=== PATIENT | male | born 2005 | race American Indian/Alaskan Native ===

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

== ENCOUNTER 2025-02-14 20:59 | Emergency (ER) | payer MEDICAID, SELFPAY ==
[2025-02-14] VITALS (7 sets, daily range): BP systolic 121–149; BP diastolic 64–85; PULSE 85–112; RESP 17–25; TEMP 36.9; O2SAT 96–99; BMI 34.4
--- NOTE | 2025-02-14 21:47 | DI.RAD.S_ITS ---
PROCEDURE: XR CHEST 1V INDICATIONS: chest pain TECHNIQUE: One view of the chest was acquired. COMPARISON: None. FINDINGS AND IMPRESSION: On this single view study, no airspace consolidation or pleural effusion. Normal heart size. Unremarkable osseous structures. Dictated by: Jah Padilla M.D. on 02/14/2025 at 22:46 Approved by: Jah Padilla M.D. on 02/14/2025 at 22:47
--- NOTE | 2025-02-14 21:47 | ED.CHESTPAIN ---
HPI - Chest Pain General Chief Complaint: Chest Pain Stated Complaint: chest pain, N/V Time Seen by Provider: 02/14/25 21:47 Source: patient Mode of arrival: Ambulatory Limitations: no limitations History of Present Illness HPI narrative: Patient is a 19-year-old male without any significant past medical history presenting to the emergency department from home for evaluation of left-sided chest pain, associated with nausea and vomiting. States it started yesterday after he mowed the lawn, he states that pressing on it does make it worse, states that the pain made him nervous and made him nauseous but currently not complaining of any of the symptoms at this time. Denies any other symptoms such as headache visual disturbances shortness of breath fever chills nausea vomiting abdominal pain or any other GI/ symptoms time. Related Data Home Medications ?Medication ?Instructions ?Recorded ?Confirmed acetaminophen 500 mg tablet 0 mg PO Q4HP PRN ##0 10/04/17 (Tylenol Extra Strength) Previous Rx's ?Medication ?Instructions ?Recorded ondansetron 4 mg disintegrating 4 mg sublingual Q6HP PRN ##20 10/04/17 tablet (Zofran ODT) Allergies Allergy/AdvReac Type Severity Reaction Status Date / Time amoxicillin (AMOXICILLIN) Allergy Unknown Unverified 02/14/25 21:09 Review of Systems Review of Systems Narrative: General: Denies fever, chills, weight loss HEENT: Denies headache, eye drainage, eye irritation, head trauma, sore throat, voice change Cardiovascular: Positive left-sided chest pain, denies palpitations, tachycardia Respiratory: Denies any shortness of breath, cough, wheeze, stridor GI/: Denies any abdominal pain, nausea, vomiting, diarrhea, bright red blood per rectum, melanotic stools, urinary frequency, urinary retention, dysuria, hematuria MSK: Denies any joint pain, muscle pains, swelling Skin: Denies any rashes, lesions, discoloration Neuro: Denies any headache, lightheadedness, dizziness, fainting, weakness Psych: Denies SI/HI Patient History Social History Smoking Status: Never smoker Smoking Status: Never smoker Exam Narrative Exam Narrative: General: Cooperative, well-developed, not in acute distress HEENT: Normocephalic, atraumatic, PERRLA, normal sclera, eyelids normal Neck: Active full range of motion, atraumatic Chest: Normal to inspection, negative crepitus, no overlying erythema ecchymosis, reproducible chest pain with palpation to the left chest no overlying erythema ecchymosis gross deformity bilateral upper extremities are neurovascularly intact Respiratory: Normal respiratory effort, not in acute respiratory distress, clear to auscultation bilaterally negative cough, wheeze, tachypnea, rhonchi, rales Cardiology: Regular rate rhythm negative gallop, murmur, rubs GI/: No tenderness to palpation, soft, non rigid, normal to inspection, exam deferred MSK: Full active range of motion in all 4 extremities, atraumatic, no tenderness to palpation of any bony prominences Skin: No rashes or lesions noted Neuro: Alert awake oriented x3, moves all 4 extremities spontaneously, cranial nerves intact, able to answer all questions appropriately follows commands appropriately Psych: Cooperative, negative suicidal or homicidal ideations Initial Vital Signs Initial Vital Signs: Vital Signs Temperature 98.5 F 02/14/25 21:09 Pulse Rate 105 H 02/14/25 21:09 Respiratory Rate 18 02/14/25 21:09 Blood Pressure 149/74 H 02/14/25 21:09 Pulse Oximetry 99 02/14/25 21:09 Oxygen Delivery Method Room Air 02/14/25 21:09 Course Orders Ordered: ED Orders 02/14/25 21:47 XR chest 1V Stat EKG-12 Lead Stat 02/14/25 23:00 Complete Blood Count AUTO DIFF Stat Comprehensive Metabolic Panel Stat Lipase Stat MAG [Magnesium] Stat Troponin & CK Cardiac Panel Stat 02/14/25 23:15 Covid-19 + FLU A/B + RSV - PCR Stat Discontinued Medications Sodium Chloride (Normal Saline 0.9%) 1,000 mls @ 1,000 mls/hr IV BOLUS ONE Stop: 02/14/25 23:01 Last Admin: 02/14/25 23:20 Dose: 1,000 mls/hr Documented By: ARMANDO Lorazepam (Lorazepam 0.5 Mg Tablet) 0.5 mg PO NOW ONE Stop: 02/14/25 21:48 Last Admin: 02/14/25 21:56 Dose: 0.5 mg Documented By: ARMANDO Vital Signs Vital signs: Vital Signs - 8 hr 02/14/25 21:09 02/14/25 21:32 02/14/25 21:33 Temperature 98.5 F Pulse Rate 105 H 112 H Respiratory Rate 18 17 Blood Pressure 149/74 H 121/85 Pulse Oximetry 99 98 Oxygen Delivery Method Room Air 02/14/25 21:33 Temperature Pulse Rate 109 H Respiratory Rate 18 Blood Pressure Pulse Oximetry 98 Oxygen Delivery Method Room Air MDM - Chest Pain Differential Diagnosis Differential diagnosis: Likely fracture of rib, atypical chest pain, st elevation myocardial infarction, costochondritis, chest pain and other (Precordial catch electrolyte abnormality) Lab Data 02/14/25 23:00 02/14/25 23:00 Labs: Lab Results 02/14/25 Range/Units 23:00 WBC 11.5 H (4.5-11.0) X10^3/uL RBC 5.47 (4.5-5.9) X10^6/uL Hgb 15.9 (13.5-17.5) g/dL Hct 46.7 (41-53) % MCV 85.2 (80-100) fL MCH 29.0 (26-34) PG MCHC 34.0 (30-36) % RDW 13.5 (11.6-14.8) % Plt Count 331 (150-400) X10^3/uL Neut % (Auto) 87.8 H (50-75) % Lymph % (Auto) 9.3 L (25-40) % Perry % (Auto) 2.4 L (3-14) % Eos % (Auto) 0.3 L (2-4) % Baso % (Auto) 0.2 (0-2) % Neut # (Auto) 69728 H (1124-2054) /uL Lymph # (Auto) 1100 (6555-4352) /uL Perry # (Auto) 300 (0-900) /uL Eos # (Auto) 0 (0-450) /uL Baso # (Auto) 0 (0-100) /uL Sodium 143 (137-145) mmol/L Potassium 4.3 (3.4-5.1) mmol/L Chloride 107 (98-107) mmol/L Carbon Dioxide 24 (22-32) mmol/L BUN 8 L (9-20) mg/dL Creatinine 0.84 (0.66-1.25) mg/dL Estimated GFR > 60 (>60) mL/min BUN/Creatinine Ratio 9.5 (6-22) Glucose 104 H (70-99) mg/dL Calcium 10.0 (8.4-10.2) mg/dL Magnesium 2.1 (1.6-2.3) mg/dL Total Bilirubin 0.7 (0.2-1.3) mg/dL AST 31 (17-59) IU/L ALT 22 (<50) IU/L Alkaline Phosphatase 68 (38-126) U/L Total Creatine Kinase 175 H (55-170) U/L Troponin I < 0.012 (0.01-0.034) ng/mL Total Protein 8.7 H (6.3-8.2) g/dL Albumin 5.2 H (3.5-5.0) g/dL Globulin 3.5 (1.7-4.1) g/dL Albumin/Globulin Ratio 1.5 (1.0-2.8) Lipase 69 (23-300) U/L Imaging Data Chest x-ray: Radiologist's Impression: [address] [address] XRay Report Signed Patient: Jose Lynch MR#: [id number] : 2005 Acct:[id number] Age/Sex: 19 / M Date of Service: 02/14/25 Loc: ED Accession Number: [id number] Procedure: XR chest 1V Ordering Provider: Stevo Bustos D.O. PROCEDURE: XR CHEST 1V INDICATIONS: chest pain TECHNIQUE: One view of the chest was acquired. COMPARISON: None. FINDINGS AND IMPRESSION: On this single view study, no airspace consolidation or pleural effusion. Normal heart size. Unremarkable osseous structures. ECG Data Interpretation: EKG interpreted by ED physician sinus 92 beats per minute QTC 408, normal axis, no STEMI MDM Narrative Medical decision making narrative: Patient is a 19-year-old male without any significant past medical history presents to the emergency department from home for evaluation of left-sided chest pain started spontaneously yesterday after he was mowing the lawn, he states that it is reproducible with palpation, he states that the pain did cause him to feel anxious and had an episode of nonbilious nonbloody emesis, at this time he is not complaining of any nausea and vomiting. On exam he does have reproducible tenderness to palpation of the left pectoral region, but no overlying erythema ecchymosis gross deformity. Neurovascularly intact bilateral upper extremities, patient had EKG without any ischemic changes, chest x-ray without any acute cardiopulmonary abnormality, CBC did show mild leukocytosis of 11.5 most likely reactive given patient's symptoms, Chem panel unremarkable, troponin negative, patient with a heart score of 0, symptoms and history along with physical exam more likely costochondritis/musculoskeletal in nature, patient was given strict return precautions and verbalized understanding of this and agrees to being discharged home with outpatient follow up Discharge Plan Departure Patient Disposition: Home Clinical Impression: Chest pain Activity Restrictions/Additional Instructions: Please follow up with the primary care doctor Please read the discharge instructions sheet carefully and bring all papers to all doctor follow-up visits, as it may contain information that your doctor may want to see. Disease processes change and evolve, if your symptoms worsen or if you develop any new symptoms that are concerning to you please return for evaluation. Your evaluation today does not show any evidence of any life-threatening/serious illnesses requiring admission to the hospital or surgery. Please follow-up with your doctor for re-evaluation in approximately 1 day. Seek immediate medical attention for any worrisome symptoms. *If you do not have a primary care provider please contact the [facility] Resource line at [phone]. They will ask some questions about your medical history and help get you set up with a doctor in the community. Prescriptions: No Action acetaminophen [Tylenol Extra Strength] 500 MG tablet 0 mg PO Q4HP PRNQty: 0 ondansetron [Zofran ODT] 4 MG tablet,disintegrating 4 mg Sublingual Q6HP PRNQty: 20 0RF Referrals: Pilar Gutiérrez MD [Primary Care Provider, Family Practice] Stand Alone Forms: Patient Portal/API
[2025-02-14] MEDS: LORazepam 0.5 MG TABLET PO (21:56)
[2025-02-14 23:05] LABS: Add Manual Diff / Slide Review NO; Basophils Absolute Auto 0 /uL (0-100); Basophils Percent Auto 0.2 % (0-2); Eosinophils Absolute Auto 0 /uL (0-450); Eosinophils Percent Auto 0.3 % (2-4); Hematocrit 46.7 % (41-53); Hemoglobin 15.9 g/dL (13.5-17.5); Lymphocytes Absolute Auto 1100 /uL (1100-4500); Lymphocytes Percent Auto 9.3 % (25-40); Mean Corpuscular Volume 85.2 fL (80-100); Monocytes Absolute Auto 300 /uL (0-900); Monocytes Percent Auto 2.4 % (3-14); Neutrophils Absolute Auto 10100 /uL (1500-7000); Neutrophils Percent Auto 87.8 % (50-75); Platelet Count 331 X10^3/uL (150-400); Red Blood Cell Count 5.47 X10^6/uL (4.5-5.9); Red Cell Distribution Width 13.5 % (11.6-14.8); White Blood Cell Count 11.5 X10^3/uL (4.5-11.0)
[2025-02-14 23:17] LABS: Alanine Aminotransferase 22 IU/L (<50); Albumin 5.2 g/dL (3.5-5.0); Albumin Globulin Ratio 1.5 (1.0-2.8); Alkaline Phosphatase 68 U/L (38-126); Aspartate Aminotransferase 31 IU/L (17-59); BUN Creatinine Ratio 9.5 (6-22); Bilirubin Total 0.7 mg/dL (0.2-1.3); Blood Urea Nitrogen 8 mg/dL (9-20); Carbon Dioxide 24 mmol/L (22-32); Chloride 107 mmol/L (98-107); Creatine Kinase 175 U/L (55-170); Estimated Glomerular Filt Rate > 60 mL/min (>60); Globulin 3.5 g/dL (1.7-4.1); Glucose 104 mg/dL (70-99); HEMOLYSIS < 15 (0-50); Lipase 69 U/L (23-300); Potassium 4.3 mmol/L (3.4-5.1); Sodium 143 mmol/L (137-145); Total Protein 8.7 g/dL (6.3-8.2)
[2025-02-14 23:18] LABS: Magnesium 2.1 mg/dL (1.6-2.3)
[2025-02-14] MEDS: SODIUM CHLORIDE 0.9% 1,000 ML 1000 ML IV (23:20)
[2025-02-14 23:29] LABS: Troponin I < 0.012 ng/mL (0.01-0.034)
--- NOTE | 2025-02-14 23:47 | EKG_ITS ---
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
[2025-02-15] VITALS: PULSE 92; RESP 27; O2SAT 99
[2025-02-15 00:01] LABS: COVID-19 CEPHEID 4-PLEX PCR Negative (Negative); Influenza A - CEPHEID Flu A NEGATIVE (NEGATIVE); Influenza B - CEPHEID Flu B NEGATIVE (NEGATIVE); Respiratory Syncytial Virus Negative (Negative)
== END 2025-02-15 00:10 | disposition home or self-care (01) ==
PROVIDERS: Emergency Provider Student in an Organized Health Care Education/Training Program; PCP Family Medicine
DX: R07.9 Chest pain, unspecified (principal); R11.2 Nausea with vomiting, unspecified
CPT/HCPCS: 0241U; 36415; 71045; 80053; 82550; 83690; 83735; 84484; 85025; 93005; 93010; 96360; 99284